=== PATIENT | male | born 1990 | race Caucasian/White ===

== ENCOUNTER 2016-09-23 15:44 | Emergency (ER) | payer MEDICAID, OTHER ==
[~2016-09-23] VITALS: Ht 167.6 cm; Wt 70.0 kg
[~2016-09-23 15:44] MED LIST: BEN25 PO; CALAMINE TOP; CLIN-73 PO
[2016-09-23 15:55] VITALS: Ht 167.6 cm; Wt 70.0 kg
[2016-09-23] MEDS ORDERED: HALOPERIDOL 5 MG INJ ONE (16:28)
[2016-09-23] MEDS ORDERED: LORAZEPAM 2 MG INJ IV ONE (16:30)
[2016-09-23] MEDS ORDERED: HALOPERIDOL 5 MG INJ IM ONE (17:30)
--- NOTE | 2016-09-23 18:07 | RADRPT ---
PROCEDURE: CT Head without. CLINICAL INDICATION: Head laceration, trauma. No forward TECHNIQUE: The study was performed utilizing a multi-slice, multidetector CT scanner. Direct spira l 1 mm axial sections were obtained through the head without the use of intravenous contrast materia l. 1 or more of the following dose reduction techniques were utilized: Automated exposure control, adjustment of the mA and/or kV according to patient's size, iterative reconstruction technique. Co keren and sagittal reformations were obtained. The images were reviewed on a PACS workstation. RADIATION DOSE: CTDIvol: 44.3 mGyDLP: 720.2 mGy-cm COMPARISON: No prior studies are available for comparison. FINDINGS: There is no intracranial hemorrhage, extra-axial fluid collection, mass lesion, midline shift or hyd rocephalus. The ventricles, sulci and cisterns are within normal limits. The white matter is unrem arkable. The adam-white matter differentiation is preserved. The basal cisterns are patent. The m idline structures are intact. The orbits, calvarium and extracranial soft tissues are normal in adriano earance. The visualized paranasal sinuses, mastoid air cells and middle ear cavities are normally ae rated. IMPRESSION: 1. No acute intracranial abnormality. No intracranial hemorrhage, extra-axial fluid collection, ma ss lesion or hydrocephalous. RPTAT: HGAS .Virgil Dominique MD, MD Date Time Electronically viewed and signed by .Virgil Dominique MD, MD on 09/23/2016 18:07 .S/
--- NOTE | 2016-09-23 18:11 | RADRPT ---
PROCEDURE: CT Cervical Spine without contrast. CLINICAL INDICATION: Cervical spine pain status post trauma. TECHNIQUE: The study was performed on a multislice multidetector CT scanner. Spiral axial 1 mm im ages were obtained through the cervical spine and reformatted at 2.5 mm slice thickness without cont rast. 1 or more of the following dose reduction techniques were utilized: Automated exposure contr ol, adjustment of the mA and/or kV according to patient's size, iterative reconstruction technique. Coronal and sagittal reformations were obtained. The images were reviewed on a PACS workstation. RADIATION DOSE: CTDIvol: 20.6 mGyDLP: 650.2 mGy-cm COMPARISON: No prior studies are available for comparison. FINDINGS: There is motion artifact at the level C1 and C2 as well as C6 C7, significantly limiting evaluation in these regions. Repeat examination is performed through the C1-2 level. There is diffuse straigh tening the cervical spine without reversal of normal cervical lordosis. The vertebral body heights are maintained. There is no evidence of fracture or dislocation. The marrow density is within norm al limits. The intervertebral disc spaces appear normal. The cervical canal is unremarkable. There i s a no bone destruction or sclerosis. The paraspinal soft tissues are unremarkable. No significant paraspinal soft tissue swelling. C2-3: The posterior margin of the disc, thecal sac and neural foramina are normal in appearance. C3-4: The posterior margin of the disc, thecal sac and neural foramina are normal in appearance. C4-5: The posterior margin of the disc, thecal sac and neural foramina are normal in appearance. C5-6: The posterior margin of the disc, thecal sac and neural foramina are normal in appearance. C6-7: The posterior margin of the disc, thecal sac and neural foramina are normal in appearance. C7-T1: The posterior margin of the disc, thecal sac and neural foramina are normal in appearance. IMPRESSION: 1. Slightly limited evaluation due to motion artifact at the C1, C2 and C6, C7 levels. 2. No evidence of acute of the cervical spine. No evidence of fracture or dislocation. 3. Straightening of the cervical spine which may be related paraspinal muscle spasm versus position ing. RPTAT: HGAS .Virgil Dominique MD, MD Date Time Electronically viewed and signed by .Virgil Dominique MD, MD on 09/23/2016 18:11 .S/
[2016-09-23 19:30] VITALS: BP 156/76; PULSE 105; RESP 22
--- NOTE | 2016-09-23 19:58 | ERD ---
ER Documentation Chief Complaint Date/Time DATE: 09/23/16 TIME: 19:49 Chief Complaint bib ra for medical clearance for booking. lac to head. HPI This 26-year-old male was brought in by PD for looking after committing a crime. Patient is medical clearance because he has a laceration to the side of his left head. He says that it hurts a little. He denies any neck pain. He does admit to drinking beer earlier today. He denies pain in any other part of his body except her nurse about his wrists where handcuffs and then applied. He denies any other medical history any other injury. He did not lose consciousness. He denies any nausea or vomiting. ROS All systems reviewed and are negative except as per history of present illness. Medications Home Meds Active Scripts Calamine* (Calamine*) 120 Ml Lotion, 1 APPLIC TOP Q6 for RASH, #120 EA 0 Refills Prov:RENY RAMOS PA-C 08/08/15 Diphenhydramine Hcl* (Benadryl*) 25 Mg Cap, 25 MG PO Q6, #30 CAP 0 Refills Prov:RENY RAMOS PA-C 08/08/15 Clindamycin Hcl* (Clindamycin Hcl*) 300 Mg Capsule, 300 MG PO TID, #30 CAP 0 Refills Prov:RENY RAMOS PA-C 08/08/15 Allergies Allergies: Coded Allergies: ibuprofen (Verified Allergy, Intermediate, rash, 08/14/13) PMhx/Soc History of Surgery: No Anesthesia Reaction: No Hx Neurological Disorder: No Hx Respiratory Disorders: No Hx Cardiac Disorders: No Hx Psychiatric Problems: No Hx Miscellaneous Medical Probl: No Hx Alcohol Use: Yes (SUSPECTED) Hx Substance Use: Yes (SUSPECTED) Hx Tobacco Use: No Smoking Status: Unknown if ever smoked Physical Exam Vitals Vital Signs Date Time Temp Pulse Resp B/P Pulse Ox O2 Delivery O2 Flow Rate FiO2 09/23/16 19:30 105 22 156/76 99 Room Air 09/23/16 15:55 98.8 95 17 129/ 85 Physical Exam Const: [] No distress, but intermittently agitated, did shout obscenities at police officers on 2 occasions during exam.. Head: 4 cm laceration to left parietal scalp. Laceration is superficial but edges are by a few centimeters, no active bleeding. No swelling. Eyes: Normal Conjunctiva EOMI, BIRDIE ENT: Normal External Ears, Nose and Mouth. Neck: Full range of motion.. No midline tenderness. Resp: Clear to auscultation bilaterally Cardio: Regular rate and rhythm, no murmurs Abd: Soft, non tender, non distended. Normal bowel sounds Skin: No petechiae or rashes Back: No midline or flank tenderness Ext: No cyanosis, or edema, no abrasions to wrists or handcuffs are applied. Neur: Awake and alert and oriented 3, appears somewhat intoxicated, no slurred speech, para nerves II through XII intact, cerebellar tests wish and rubbing along tibia within normal limits, normal gait Psych: Intermittently agitated Results 24 hrs Current Medications Medications (Trade) Dose Ordered Sig/Adolfo Route PRN Reason Start Time Stop Time Status Last Admin Dose Admin Lorazepam (Ativan) 2 mg ONCE ONCE IV 09/23/16 16:30 09/23/16 16:31 DC 09/23/16 16:13 Haloperidol (Haldol) 5 mg STK-MED ONCE .ROUTE 09/23/16 16:28 09/23/16 16:29 DC Haloperidol (Haldol) 5 mg ONCE ONCE IM 09/23/16 17:30 09/23/16 17:31 DC 09/23/16 17:40 Procedures/MDM 26-year-old male with superficial head laceration. Repaired in ED with Dermabond. Patient was intoxicated and very agitated and angry with the police on arrival. He was given 2 mg of Ativan and 5 mg of Haldol after which she became very calm. He was intoxicated on arrival he was able to answer all questions and was alert and oriented. CT was negative for acute process. Performed a repeat neurological exam and the awake patient prior to discharge and was alert and oriented 3 and showed no further signs of intoxication. Repeat neck exam performed and the patient full range of motion without pain. He had been observed in the emergency room for 4 hours. Going to discharge him with primary care follow-up as well as head injury instructions and return to the emergency room instructions. CT head interpretation: I see no acute process. No hemorrhage no mass effect no midline shift no skull fracture CT C-spine interpretation: No fracture subluxation visualized. Mild motion artifact at upper and lower cervical spine. She did have initial pulse ox of T5. This is an erroneous reading as it was rechecked and patient's pulse ox was at the low as 99 for the rest of his stay with a normal cardiopulmonary exam, no shortness of breath, and no tachypnea. Departure Diagnosis: Primary Impression: ETOH abuse Additional Impressions: Scalp laceration Head injury Condition: Stable Patient Instructions: HEAD INJURY, No Wake-Up (Adult), Laceration, Scalp Referrals: [facility] YOU HAVE RECEIVED A MEDICAL SCREENING EXAM AND THE RESULTS INDICATE THAT YOU DO NOT HAVE A CONDITION THAT REQUIRES URGENT TREATMENT IN THE EMERGENCY DEPARTMENT. FURTHER EVALUATION AND TREATMENT OF YOUR CONDITION CAN WAIT UNTIL YOU ARE SEEN IN YOUR DOCTORS OFFICE WITHIN THE NEXT 1-2 DAYS. IT IS YOUR RESPONSIBILITY TO MAKE AN APPOINTMENT FOR FOLOW-UP CARE. IF YOU HAVE A PRIMARY DOCTOR --you should call your primary doctor and schedule an appointment IF YOU DO NOT HAVE A PRIMARY DOCTOR YOU CAN CALL OUR PHYSICIAN REFERRAL HOTLINE AT IF YOU CAN NOT AFFORD TO SEE A PHYSICIAN YOU CAN CHOSE FROM THE FOLLOWING [facility] [id number] [facility]. [facility] [address] [facility] [facility] [address] [facility] [facility] [address] [facility] [facility] [address] [facility]. [facility]. [address] Additional Instructions: Call your primary care doctor TOMORROW for an appointment during the next 1-2 days.See the doctor sooner or return here if your condition worsens before your appointment time. MAGALI GRAHAM DO Sep 23, 2016 19:58
== END 2016-09-23 19:23 | disposition home or self-care (01) ==
LOC: E/R 15:44
DX: F10.129 Alcohol abuse with intoxication, unspecified (principal); S09.90XA Unspecified injury of head, initial encounter; R40.2142 Coma scale, eyes open, spontaneous, at arrival to emergency department; R40.2252 Coma scale, best verbal response, oriented, at arrival to emergency department; R40.2362 Coma scale, best motor response, obeys commands, at arrival to emergency department; X58.XXXA Exposure to other specified factors, initial encounter; Y92.9 Unspecified place or not applicable
CPT/HCPCS: 12002; 70450; 72125; J1630; J2060; 96372; 96374